=== PATIENT | male | born 1995 | race Two or more races ===

== ENCOUNTER 2018-04-30 00:39 | Emergency (ER) | payer OTHER ==
[~2018-04-30] VITALS: Ht 177.8 cm; Wt 101.2 kg
--- NOTE | 2018-04-30 00:57 | NUR ---
Dr. Gayle at bedside for MSE.
[2018-04-30] MEDS ORDERED: PANTOPRAZOLE SODIUM 40 MG TABLET.DR PO ONE ×2 (01:00→01:12)
[2018-04-30] MEDS ORDERED: LIDOCAINE VISCUS 2% 15 ML UDC MM ONE (01:00)
[2018-04-30] MEDS ORDERED: MAG HYDROX/AL HYDROX/SIMETH 30 ML LIQUID UDC PO ONE (01:00)
[2018-04-30] MEDS ORDERED: MAGNESIUM HYDROXIDE 30 ML LIQUID UDC ONE (01:11)
[2018-04-30] MEDS ORDERED: LIDOCAINE VISCUS 2% 15 ML UDC ONE (01:11)
[2018-04-30 01:22] LABS: BASOPHILS % (AUTO) 0.7 % (0.0-2.0); EOSINOPHILS # (AUTO) 0.2 K/uL (0.0-0.7); EOSINOPHILS % (AUTO) 2.8 % (0.0-7.0); HEMATOCRIT 44.7 % (36.7-47.1); HEMOGLOBIN 15.1 g/dL (12.5-16.3); LYMPHOCYTES # (AUTO) 1.8 K/uL (20.0-40.0); LYMPHOCYTES % (AUTO) 27.4 % (20.5-51.5); MEAN CORPUSCULAR HEMOGLOBIN 27.8 uug (23.8-33.4); MEAN CORPUSCULAR HGB CONC 34 g/dL (32.5-36.3); MEAN CORPUSCULAR VOLUME 82.5 fL (73.0-96.2); MONOCYTES # (AUTO) 0.6 K/uL (2.0-10.0); MONOCYTES % (AUTO) 8.7 % (0.0-11.0); NEUTROPHILS # (AUTO) 3.9 K/uL (1.8-8.9); NEUTROPHILS % (AUTO) 60.4 % (38.5-71.5); PLATELET COUNT (AUTO) 201 K/uL (152-348); RED BLOOD CELL COUNT(AUTO) 5.42 MIL/uL (4.06-5.63); WHITE BLOOD COUNT (AUTO) 6.4 K/uL (3.6-10.2)
[2018-04-30 01:37] LABS: CREATININE 0.9 mg/dL (0.6-1.3)
[2018-04-30 01:39] LABS: *BILIRUBIN,URIN NEGATIVE (NEGATIVE); *BLOOD, URINE NEGATIVE (NEGATIVE); *CLARITY,URINE CLEAR (CLEAR); *COLOR,URINE YELLOW (YELLOW); *KETONES,URINE NEGATIVE (NEGATIVE); *PROTEIN,URINE TRACE (NEGATIVE); *UROBILINOGEN,URINE 0.2 E.U./dl (NORMAL); LEUKOCYTE ESTERASE ,URINE NEGATIVE (NEGATIVE); NITRITE, URINE NEGATIVE (NEGATIVE); UGLUCOSE NEGATIVE (NEGATIVE)
--- NOTE | 2018-04-30 01:45 | NUR ---
Pt out of ER for CT.
[2018-04-30 01:50] LABS: BACTERIA,URINE NONE SEEN /HPF (NONE SEEN); RBC,URINE NONE SEEN /HPF (0-3); SQUAMOUS EPITHELIAL CELL,UR FEW /HPF (NONE SEEN); WBC,URINE 0-3 /HPF (0-3)
--- NOTE | 2018-04-30 02:00 | NUR ---
Pt back to ER from CT.
--- NOTE | 2018-04-30 02:44 | NUR ---
Patient discharged to home in stable conditon. Written and verbal after care instructions given. Patient verbalizes understanding of instructions. Walked out of with steady gait with no distress noted
[2018-04-30 02:46] VITALS: BP 118/75
== END 2018-04-30 02:46 | disposition home or self-care (01) ==
LOC: ER 00:43
DX: K29.70 Gastritis, unspecified, without bleeding (principal); K64.9 Unspecified hemorrhoids
CPT/HCPCS: 36415; 83690; 85025; 85730; 86850; 86900; 86901; A4663

== ENCOUNTER 2021-12-31 12:21 | Emergency (ER) | payer BC ==
[~2021-12-31] VITALS: Ht 180.3 cm; Wt 102.1 kg
[2021-12-31] MEDS: KETOROLAC TROMETHAMINE 30 MG INJ IM ONE (13:59)
[2021-12-31] MEDS ORDERED: KETOROLAC TROMETHAMINE 30 MG INJ ONE (14:05)
[2021-12-31] MEDS: MORPHINE SULFATE 4 MG/1 ML DISP.SYRIN IM ONE (14:45)
--- NOTE | 2021-12-31 15:19 | NUR ---
Patient discharged to home in stable condition. Written and verbal after care instructions given. Patient verbalizes understanding of instructions. Stressed follow up or return to ER for worsening s/s.pt walks in a steady gasit. pt used ub[employer] to go home.
[2021-12-31] MEDS ORDERED: MORPHINE SULFATE 4 MG/1 ML DISP.SYRIN ONE (15:24)
[2021-12-31] MEDS ORDERED: MORPHINE SULFATE 2 MG/1 ML DISP.SYRIN ONE (15:24)
== END 2021-12-31 15:19 | disposition home or self-care (01) ==
LOC: ER 12:35
DX: M25.512 Pain in left shoulder (principal); M25.531 Pain in right wrist; J45.909 Unspecified asthma, uncomplicated
CPT/HCPCS: 73030; 73110; 96372; 99284; J1885; A4663; J2270